=== PATIENT | female | born 1950 | race Caucasian/White ===

== ENCOUNTER 2018-02-18 10:54 | Observation (INO) | payer OTHER ==
[~2018-02-18 10:54] MED LIST: CEFAZOLIN 1 GM INJ
[2018-02-18] MEDS ORDERED: ISOSULFAN BLUE 1% 5 ML INJ SC (13:32)
[2018-02-18] MEDS ORDERED: PROPOFOL 20 ML (13:41)
[2018-02-18] MEDS ORDERED: ROCURONIUM 50 MG INJ (13:42)
[2018-02-18] MEDS ORDERED: MIDAZOLAM 1 MG/ML 2 ML INJ (13:42)
[2018-02-18] MEDS ORDERED: FENTAnyl 50 MCG/ML VIAL (13:43)
[2018-02-18] MEDS ORDERED: ONDANSETRON 4 MG INJ (13:43)
[2018-02-18] MEDS ORDERED: DEXAMETHASONE 4 MG/ML 1 ML INJ (13:43)
[2018-02-18] MEDS ORDERED: SUGAMMADEX SODIUM 200 MG/2 ML VIAL IV (14:07)
[2018-02-18] MEDS: ISOSULFAN BLUE 1% 5 ML INJ SC (14:20)
[2018-02-18] MEDS ORDERED: EPHEDrine SULFATE 50 MG/5 ML SYG (14:37)
[2018-02-18] MEDS ORDERED: BUPIVACAINE 0.25% (MPF) 30 ML INJ (15:14)
[2018-02-18] MEDS ORDERED: ONDANSETRON 4 MG INJ IV ×2 (15:30→16:00)
[2018-02-18] MEDS ORDERED: ACETAMINOPHEN 1000MG/100ML IV 100 ML IVPB (15:30)
[2018-02-18] MEDS ORDERED: morphine 2 MG INJ IV (15:30)
[2018-02-18] MEDS ORDERED: FENTAnyl 50 MCG/ML VIAL IV (16:00)
[2018-02-18] MEDS ORDERED: OXYCODONE/ACETAMINOPHEN (5/325) TAB PO (16:00)
[2018-02-18] MEDS ORDERED: HYDROmorphONE (0.2 MG/ML) 10ML SYG IV ×2 (16:00)
[2018-02-18] MEDS: FENTAnyl 50 MCG/ML VIAL IV (16:54)
[2018-02-18] MEDS: D5W-0.45 NACL + KCL 20 MEQ 1,000 ML IV ×2 (18:53→23:26)
[2018-02-19] MEDS: D5W-0.45 NACL + KCL 20 MEQ 1,000 ML IV (01:48)
[2018-02-19] MEDS: LEVOTHYROXINE 88 MCG TAB PO (12:58)
== END 2018-02-19 13:25 | disposition home or self-care (01) ==
LOC: SDS 10:54 → REC 16:46 → MS2 17:30
DX: C50.911 Malignant neoplasm of unspecified site of right female breast (principal); Z17.0 Estrogen receptor positive status [ER+]; E03.9 Hypothyroidism, unspecified
CPT/HCPCS: 19301; 88307; 88331; 88342; 99217